=== PATIENT | female | born 1955 | race Asian ===

== ENCOUNTER 2018-10-16 09:45 | Emergency (ER) | payer OTHER ==
[2018-10-16] MEDS ORDERED: Morphine 4 MG/ML VIAL (1 ml) 4 MG/ML VIAL IV ONE ×3 (10:03→13:29)
--- NOTE | 2018-10-16 10:03 | ED ---
Upper Extremity Pain - HPI Summary HPI Summary: The patient is a 63 y/o F presenting to [facility] accompanied by her daughter with a chief complaint of sudden onset left shoulder pain after injury occurring around 0700 this morning. She reports that she was walking her dog when the dog pulled on its leash, making her fall on the left shoulder, causing immediate pain. She and her daughter went to [facility] at 0800, and they were told that the patient has dislocated the shoulder, and there is a fracture. There is numbness in the first and second fingers on the left hand, as well as tingling in the third finger. She is able to move the elbow and feel the entirety arm, but there is decreased ROM in the shoulder only secondary to pain. The pain is aggravated by movement and alleviated by holding the arm still, which is currently in a sling placed at [facility]. 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 She last ate around [id number] today. She notes she brought the imaging disc from [facility]. No PMHx. Nonsmoker, no EtOH, no substance use. Medications reviewed. Allergies reviewed. - History of Current Complaint Chief Complaint: EDExtremityUpper Stated Complaint: LT SHOULDER DISLOCATION PER DAUGHTER Time Seen by Provider: 10/16/18 09:54 Hx Obtained From: Patient, Family/Industrial Tech Instructor - daughter Mechanism Of Injury: Other - pulled shoulder Onset/Duration: Started Hours Ago - at 0700 today, Still Present Timing: Constant, Lasting Hours Severity Initially: Moderate Severity Currently: Moderate Pain Location: Shoulder - left Aggravating Factor(s): Movement Alleviating Factor(s): Rest Associated Signs & Symptoms: Positive: Numbness/Tingling - numbness in first and second fingers, tingling in third finger, Other - decreased ROM in shoulder secondary to pain, ability to feel LUE - Allergies/Home Medications Allergies/Adverse Reactions: Allergies Allergy/AdvReac Type Severity Reaction Status Date / Time No Known Allergies Allergy Verified 10/16/18 09:49 PMH/Surg Hx/FS Hx/Imm Hx Endocrine/Hematology History: Denies: Hx Diabetes Cardiovascular History: Denies: Hx Hypertension Sensory History: Denies: Hx Legally Blind, Hx Deafness EENT History: Denies: Hx Deafness - Surgical History Surgical History: None Surgery Procedure, Year, and Place: none Infectious Disease History: No Infectious Disease History: Reports: Traveled Outside the [place] in Last 30 Days - Family History Known Family History: Positive: Diabetes - Social History Alcohol Use: None Hx Substance Use: No Substance Use Type: Reports: None Hx Tobacco Use: No Smoking Status (MU): Never Smoked Tobacco Review of Systems Positive: Decreased ROM - secondary to pain but able to move left elbow , Other - pain in the LUE specifically at shoulder Positive: Numbness - in left hand at first and second finger with tingling in third finger All Other Systems Reviewed And Are Negative: Yes Physical Exam - Summary Physical Exam Summary: Constitutional: Well-developed, Well-nourished, Alert. (-) Distressed Skin: Warm, Dry HENT: Normocephalic; Atraumatic Eyes: Conjunctiva normal Neck: Musculoskeletal ROM normal neck. (-) JVD, (-) Stridor, (-) Tracheal deviation Cardio: Rhythm regular, rate normal, Heart sounds normal; Intact distal pulses; The pedal pulses are 2+ and symmetric. Radial pulses are 2+ and symmetric. (-) Murmur Pulmonary/Chest wall: Effort normal. (-) Respiratory distress, (-) Wheezes, (-) Rales Abd: Soft, (-) tenderness, (-) Distension, (-) Guarding, (-) Rebound Musculoskeletal: LUE tenderness at the shoulder, Radial pulse is 2+, FROM in hand, Deltoid sensation intact. (-) Edema Lymph: (-) Cervical adenopathy Neuro: Alert, Oriented x3 Psych: Mood and affect Normal Triage Information Reviewed: Yes Vital Signs On Initial Exam: Initial Vitals Temp Pulse Resp BP Pulse Ox 96.7 F 60 18 138/79 98 10/16/18 09:47 10/16/18 09:47 10/16/18 09:47 10/16/18 09:47 10/16/18 09:47 Vital Signs Reviewed: Yes Procedures - Procedure Summary Procedure Summary: Informed consent for procedural sedation for left shoulder dislocation reduction. RT present at bedside. Patient attached to end tidal CO2. Bag-valve mask in suction present. 50mg propofol given with achievement of moderate sedation. Patient became borderline hypoxic at 98% spO2 but responded to nasal cannula oxygenation. Procedure was performed twice with a second dose of 50mg propofol given. Procedure was successful with the second attempt. The patient recovered from sedation. See nursing notes for further information. Diagnostics - Vital Signs Vital Signs Temp Pulse Resp BP Pulse Ox 10/16/18 09:47 96.7 F 60 18 138/79 98 - Laboratory Lab Statement: Any lab studies that have been ordered have been reviewed, and results considered in the medical decision making process. - Radiology Left Shoulder XR (pre-reduction) Radiology Interpretation Completed By: Radiologist Summary of Radiographic Findings: Impression: Anterior inferior dislocation of the humeral head with avulsion fracture of the greater tuberosity. ED physician has reviewed this report. Left Shoulder XR (first reduction) Radiology Interpretation Completed By: Radiologist Summary of Radiographic Findings: Impression: Fracture of the humeral head. Persistent dislocation of the humeral head. ED physician has reviewed this report. Left Shoulder XR (second reduction) Radiology Interpretation Completed By: Radiologist Summary of Radiographic Findings: Impression: Near-anatomic alignment status post reduction of the left shoulder with a fracture through the greater tuberosity. ED physician has reviewed this report. Left Shoulder XR Radiology Interpretation Completed By: Radiologist Summary of Radiographic Findings: Impression: Anterior inferior dislocation of the humeral head with avulsion fracture of the greater tuberosity. ED physician has reviewed this report. Left Shoulder XR (post-reduction) Radiology Interpretation Completed By: Radiologist Summary of Radiographic Findings: Impression: Anterior inferior dislocation of the humeral head with avulsion fracture of the greater tuberosity. ED physician has reviewed this report. Re-Evaluation - Re-Evaluation First Eval Re-Evaluation Time: 10:27 Comment: I reported that we will do repeat imaging of the arm. Second Eval Re-Evaluation Time: 13:29 Comment: Patient has woken up from sedation, and the left hand is numb. She is hvaing difficulty making a full rv detailer. Awaiting for repeat x-rays. Third Eval Re-Evaluation Time: 13:40 Comment: I discussed the repeat x-ray shows unsuccessful reduction. Fourth Eval Re-Evaluation Time: 14:15 Comment: Patient has recovered from sedation. We discussed discharge. Course/Dx - Course Course Of Treatment: Patient is here with a left shoulder dislocation and greater tuberosity avulsion fracture. Orthopedic surgery was called and she had a fracture and recommended reduction. Patient had 3 attempts at reduction. 2 of them were sedated with the final one being successful. Patient did have a median neuropathy upon arrival which continued after her reduction. Patient was given orthopedic surgery follow-up. - Diagnoses Provider Diagnoses: Fall, Humeral head fracture, Shoulder dislocation, Dislocation of shoulder, left, closed - Physician Notifications Discussed Care of Patient With: Al Devlin - orthopedics Time Discussed With Above Provider: 11:20 Instructed by Provider To: Other - I discussed the patient's case with Dr. Devlin. He suggests reduction and repeat imaging and follow up with him. Discharge - Sign-Out/Discharge Documenting (check all that apply): Patient Departure - Patient will be discharged home. Patient Received Moderate/Deep Sedation with Procedure: Yes - Discharge Plan Condition: Stable Disposition: HOME Prescriptions: Acetaminop/Codeine 30 MG TAB* [Tylenol/Codeine 30 MG TAB*] 1 tab PO Q6H PRN #20 tab MDD 4 tabs PRN Reason: Pain - Moderate Patient Education Materials: Arm Fracture in Adults (ED), Shoulder Dislocation (ED), Procedural Sedation (ED) Referrals: [facility] [place] [facility] [Outside] - 3 Days Al Devlin MD [Medical Doctor] - 1 Day Additional Instructions: Please call Dr. Devlin from orthopedics to set up an appointment. Take Ibuprofen 600mg eveyr 6 hours for pain. If the Ibuprofen does not relieve the pain, take the prescribed pain medications. Use your sling until you see the orthopedic surgeon. PLEASE RETURN TO EMERGENCY DEPARTMENT FOR ANY NEW OR WORSENING SYMPTOMS. - Billing Disposition and Condition Condition: STABLE Disposition: Home - Attestation Statements Document Initiated by Mike: Yes Documenting Scribe: Nora Burrell Provider For Whom Mike is Documenting (Include Credential): Dr. Chino Townsend MD Scribe Attestation: Nora Tripp scribed for Dr. Chino Townsend MD on 10/16/18 at 1450. Scribe Documentation Reviewed: Yes Provider Attestation: The documentation as recorded by the Nora eller accurately reflects the service I personally performed and the decisions made by me, Dr. Chino Townsend MD Status of Scribe Document: Viewed
[2018-10-16] MEDS ORDERED: Lidocaine 1% INJ* 10 MG/ML 30 ML SDV INJ ONE (11:23)
[2018-10-16] MEDS ORDERED: Propofol* 10 MG/ML 20 ML BTL IV PUSH ONE (12:16)
--- NOTE | 2018-10-16 13:56 | ED ---
Re-Evaluation - Re-Evaluation First Eval Re-Evaluation Time: 10:27 Comment: I reported that we will do repeat imaging of the arm. Second Eval Re-Evaluation Time: 13:29 Comment: Patient has woken up from sedation, and the left hand is numb. She is hvaing difficulty making a full lubrication equipment servicer. Awaiting for repeat x-rays. Third Eval Re-Evaluation Time: 13:40 Comment: I discussed the repeat x-ray shows unsuccessful reduction. Course/Dx - Diagnoses Provider Diagnoses: Shoulder dislocation - Provider Notifications Time Discussed With Above Provider: 11:20 Instructed by Provider To: Other - I discussed the patient's case with Dr. Devlin. Discharge - Sign-Out/Discharge Documenting (check all that apply): Patient Departure Patient Received Moderate/Deep Sedation with Procedure: Yes - Discharge Plan Condition: Stable Disposition: HOME Patient Education Materials: Procedural Sedation (ED) Referrals: [facility] [Outside] [facility] [Outside] - Billing Disposition and Condition Condition: STABLE Disposition: Home Procedure Note / Orthopedic - Dislocation Treatment Location: Proximal Anesthesia: Procedural Sedation Post Dislocation Treatment: Relocation Acceptable, Sedation Adequate - R shoulder dislocation. Noted fracture prior w median nerve symptom. pulse intact. Attempt one without success, attempt two w good alignment. PMS now intact with good strength of hand.
[2018-10-16 15:01] VITALS: BP 130/66
== END 2018-10-16 14:58 | disposition home or self-care (01) ==
LOC: ED 09:45
DX: S42.252A Displaced fracture of greater tuberosity of left humerus, initial encounter for closed fracture (principal); W18.39XA Other fall on same level, initial encounter; Y93.K1 Activity, walking an animal; Y92.9 Unspecified place or not applicable
CPT/HCPCS: 23655; 96372; 96374; 96375; 96376; 99285; J2270; J2704